=== PATIENT | female | born 1985 | race Caucasian/White ===

== ENCOUNTER 2016-12-12 23:10 | Emergency (ER) | payer MEDICAID ==
[~2016-12-12] VITALS: Ht 157.5 cm; Wt 65.8 kg
[~2016-12-12 23:10] MED LIST: CEPH-368 PO; CLIN40CR VG; DIPH25CA61 PO; DOXY100V6 PO; HYDR4TAB48 PO; IBUP-1222 PO; ONDA4TAB10 PO; OXYC-302 PO; PREN1TAB52 PO; PREN1TAB56 PO; URSO300C12 PO
[2016-12-12 23:12] VITALS: BP 120/83
== END 2016-12-13 00:35 | disposition home or self-care (01) ==
LOC: ED 23:54
DX: S60.222A Contusion of left hand, initial encounter (principal); Z90.49 Acquired absence of other specified parts of digestive tract; G43.909 Migraine, unspecified, not intractable, without status migrainosus; W23.0XXA Caught, crushed, jammed, or pinched between moving objects, initial encounter; Y93.89 Activity, other specified; Y92.009 Unspecified place in unspecified non-institutional (private) residence as the place of occurrence of the external cause; Y99.8 Other external cause status
CPT/HCPCS: 99284

== ENCOUNTER 2017-04-19 08:44 | Emergency (ER) | payer MEDICAID | END 2017-04-19 09:22 | disposition left against medical advice (07) | LOC: ED 09:15 | DX: O46.91 Antepartum hemorrhage, unspecified, first trimester (principal); Z3A.11 11 weeks gestation of pregnancy; Z53.21 Procedure and treatment not carried out due to patient leaving prior to being seen by health care provider ==

== ENCOUNTER 2017-04-28 15:37 | Emergency (ER) | payer MEDICAID ==
[~2017-04-28] VITALS: Ht 157.5 cm; Wt 67.6 kg
[2017-04-28 16:15] VITALS: BP 111/67
[2017-04-28 16:15] LABS: BASOPHILS # (AUTO) 0.07 x10^3/uL (0-0.1); BASOPHILS % (AUTO) 1 % (0-1); EOSINOPHILS # (AUTO) 0.08 x10^3/uL (0-0.4); EOSINOPHILS % (AUTO) 1 % (1-7); LYMPHOCYTES # (AUTO) 2.27 x10^3/uL (1-3.4); LYMPHOCYTES % (AUTO) 22 % (22-44); MD NO; MEAN CORPUSCULAR HGB CONC 33.5 g/dL (32.4-35.8); MEAN CORPUSCULAR VOLUME 92.4 fL (80-100); MEAN PLATELET VOLUME 8.4 fL (7.4-10.4); MONOCYTES # (AUTO) 0.84 x10^3/uL (0.2-0.8); MONOCYTES % (AUTO) 8 % (2-9); NEUTROPHILS # (AUTO) 6.86 x10^3/uL (1.8-6.8); NEUTROPHILS % (AUTO) 68 % (42-75); PLATELET COUNT 368 x10^3/uL (130-400); RED BLOOD COUNT 4.22 x10^6/uL (3.82-5.3); RED CELL DISTRIBUTION WIDTH 14.2 % (9.6-15.2)
[2017-04-28 16:26] LABS: ALBUMIN 3.8 g/dL (3.4-5.0); ANION GAP 7 mmol/L (5-15); CALCIUM 8.8 mg/dL (8.5-10.1); CHLORIDE 105 mmol/L (98-107)
[2017-04-28 17:15] LABS: CULTURE INDICATED? YES; MICROSCOPIC INDICATED
== END 2017-04-28 18:40 | disposition home or self-care (01) ==
LOC: ED 18:33
DX: O03.9 Complete or unspecified spontaneous abortion without complication (principal); O23.41 Unspecified infection of urinary tract in pregnancy, first trimester; Z3A.01 Less than 8 weeks gestation of pregnancy; Z90.49 Acquired absence of other specified parts of digestive tract
CPT/HCPCS: 36415; 76801; 80048; 81001; 82040; 84702; 85025; 86901; 87086; 99285

== ENCOUNTER 2017-06-06 20:18 | Emergency (ER) | payer MEDICAID ==
[~2017-06-06] VITALS: Ht 157.5 cm; Wt 67.1 kg
[2017-06-06 20:23] VITALS: BP 119/78
[2017-06-06] MEDS ORDERED: SODIUM CHLORIDE FLUSH 10ML SYR IVF ONE (21:00)
[2017-06-06] MEDS ORDERED: SODIUM CHLORIDE 0.9% 1,000ML IVBOLUS ONE (21:00)
[2017-06-06 21:02] LABS: BASOPHILS # (AUTO) 0.01 x10^3/uL (0-0.1); BASOPHILS % (AUTO) 0 % (0-1); EOSINOPHILS % (AUTO) 1 % (1-7); LYMPHOCYTES # (AUTO) 2.48 x10^3/uL (1-3.4); LYMPHOCYTES % (AUTO) 20 % (22-44); MD NO; MEAN CORPUSCULAR HEMOGLOBIN 30.7 pg (27.0-34.8); MEAN CORPUSCULAR HGB CONC 33.3 g/dL (32.4-35.8); MEAN CORPUSCULAR VOLUME 92.1 fL (80-100); MEAN PLATELET VOLUME 8.7 fL (7.4-10.4); MONOCYTES # (AUTO) 0.83 x10^3/uL (0.2-0.8); MONOCYTES % (AUTO) 7 % (2-9); NEUTROPHILS # (AUTO) 8.94 x10^3/uL (1.8-6.8); NEUTROPHILS % (AUTO) 72 % (42-75); PLATELET COUNT 383 x10^3/uL (130-400); RED BLOOD COUNT 4.06 x10^6/uL (3.82-5.3)
[2017-06-06 21:13] LABS: ALANINE AMINOTRANSFERASE 12 U/L (12-78); ALBUMIN 3.2 g/dL (3.4-5.0); ANION GAP 9 mmol/L (5-15); CALCIUM 8.5 mg/dL (8.5-10.1); CHLORIDE 106 mmol/L (98-107); CREATININE 0.63 mg/dL (0.55-1.02)
[2017-06-06 21:14] LABS: CULTURE INDICATED? YES; MICROSCOPIC INDICATED
[2017-06-06 21:30] LABS: ALKALINE PHOSPHATASE 61 U/L (45-117); BILIRUBIN,TOTAL 0.2 mg/dL (0.2-1.0); TOTAL PROTEIN 7.2 g/dL (6.4-8.2)
[2017-06-06] MEDS ORDERED: ACETAMINOPHEN 325 MG TABLET ONE (22:28)
[2017-06-06] MEDS ORDERED: ACETAMINOPHEN 500 MG TABLET PO ONE (22:30)
== END 2017-06-06 22:47 | disposition home or self-care (01) ==
LOC: ED 21:13
DX: O26.891 Other specified pregnancy related conditions, first trimester (principal); R10.30 Lower abdominal pain, unspecified; G43.909 Migraine, unspecified, not intractable, without status migrainosus; Z90.49 Acquired absence of other specified parts of digestive tract; Z3A.12 12 weeks gestation of pregnancy
CPT/HCPCS: 36415; 76801; 80053; 81001; 84702; 85025; 87086; 96360; 96361; 99285; J7030

== ENCOUNTER → 2017-06-11 | Outpatient (CLI) | payer MEDICAID | LOC: CFH 12:45 | PROVIDERS: ATTEND Nurse Practitioner | DX: N64.4 Mastodynia (principal); N64.52 Nipple discharge; N20.0 Calculus of kidney | CPT/HCPCS: 77065 ==

== ENCOUNTER 2017-07-17 18:23 | Emergency (ER) | payer MEDICAID ==
[~2017-07-17] VITALS: Ht 157.5 cm; Wt 68.9 kg
[2017-07-17 20:36] VITALS: BP 95/60
[2017-07-17 20:37] LABS: MICROSCOPIC AUTO
[2017-07-17 20:40] LABS: CULTURE INDICATED? YES
== END 2017-07-17 19:32 | disposition home or self-care (01) ==
LOC: ED 18:58
DX: O26.892 Other specified pregnancy related conditions, second trimester (principal); S30.0XXA Contusion of lower back and pelvis, initial encounter; R10.2 Pelvic and perineal pain; X58.XXXA Exposure to other specified factors, initial encounter; Y93.89 Activity, other specified; Y92.89 Other specified places as the place of occurrence of the external cause; Y99.2 Volunteer activity; Z3A.18 18 weeks gestation of pregnancy
CPT/HCPCS: 76815; 81001; 87086; 99285

== ENCOUNTER 2017-10-07 01:54 | Observation (INO) | payer MEDICAID ==
[2017-10-07] MEDS ORDERED: OXYcodone/APAP 10/325MG TABLET PO ONE (02:30)
[2017-10-07 02:32] LABS: MICROSCOPIC AUTO
[2017-10-07] MEDS ORDERED: OXYcodone/APAP 10/325MG TABLET ONE (02:33)
[2017-10-07] MEDS ORDERED: TERBUTALINE 1 MG/ML, 1ML ONE (04:11)
[2017-10-07] MEDS ORDERED: TERBUTALINE 1 MG/ML, 1ML SQ ONE (04:30)
[2017-10-07] MEDS: LACTATED RINGERS 1,000 ML IV SCH ×2 (04:39→05:34)
== END 2017-10-07 07:03 | disposition home or self-care (01) ==
LOC: LDOP 01:54 → LDIP 03:40
PROVIDERS: ADMIT Obstetrics & Gynecology; ATTEND Obstetrics & Gynecology
DX: O26.893 Other specified pregnancy related conditions, third trimester (principal); R10.9 Unspecified abdominal pain; Z3A.30 30 weeks gestation of pregnancy
CPT/HCPCS: 59025; 81001; 87086; 96360; 96361; 96372; G0378; J3105; J7120

== ENCOUNTER 2017-10-25 04:47 | Outpatient (CLI) | payer MEDICAID ==
[~2017-10-25] VITALS: Ht 157.5 cm; Wt 70.0 kg
[2017-10-25] MEDS ORDERED: TERBUTALINE 1 MG/ML, 1ML SQ ONE (05:00)
[2017-10-25] MEDS ORDERED: TERBUTALINE 1 MG/ML, 1ML ONE (05:01)
[2017-10-25 05:19] VITALS: BP 116/69
== END 2017-10-25 07:39 | disposition home or self-care (01) ==
LOC: LDOP 04:47
PROVIDERS: ATTEND Obstetrics & Gynecology
DX: O26.893 Other specified pregnancy related conditions, third trimester (principal); Z3A.33 33 weeks gestation of pregnancy
CPT/HCPCS: 59025; 99211; J3105; G0463

== ENCOUNTER 2018-05-24 23:24 | Emergency (ER) | payer MEDICAID ==
[~2018-05-24] VITALS: Ht 157.5 cm; Wt 65.7 kg
[~2018-05-24 23:24] MED LIST changes: +HYDR-3240 PO
[2018-05-24 23:28] VITALS: BP 129/77
--- NOTE | 2018-05-25 00:19 | NUR ---
PT TO US
[2018-05-25 00:31] LABS: CULTURE INDICATED? YES; MICROSCOPIC INDICATED
[2018-05-25 00:50] LABS: BASOPHILS % (AUTO) 1 % (0-1); EOSINOPHILS # (AUTO) 0.12 x10^3/uL (0-0.4); EOSINOPHILS % (AUTO) 1 % (1-7); LYMPHOCYTES % (AUTO) 28 % (22-44); MD NO; MEAN CORPUSCULAR HGB CONC 34.3 g/dL (32.4-35.8); MEAN CORPUSCULAR VOLUME 90.3 fL (80-100); MEAN PLATELET VOLUME 8.4 fL (7.4-10.4); MONOCYTES # (AUTO) 0.78 x10^3/uL (0.2-0.8); MONOCYTES % (AUTO) 9 % (2-9); NEUTROPHILS # (AUTO) 5.52 x10^3/uL (1.8-6.8); NEUTROPHILS % (AUTO) 61 % (42-75); PLATELET COUNT 336 x10^3/uL (130-400); RED BLOOD COUNT 3.66 x10^6/uL (3.82-5.3); RED CELL DISTRIBUTION WIDTH 15.9 % (9.6-15.2)
[2018-05-25 01:03] LABS: ALANINE AMINOTRANSFERASE 17 U/L (12-78); ALBUMIN 3.6 g/dL (3.4-5.0); ANION GAP 8 mmol/L (5-15); CALCIUM 8.7 mg/dL (8.5-10.1); CHLORIDE 109 mmol/L (98-107); CREATININE 0.49 mg/dL (0.55-1.02)
[2018-05-25 01:19] LABS: ALKALINE PHOSPHATASE 81 U/L (45-117); BILIRUBIN,TOTAL 0.2 mg/dL (0.2-1.0); TOTAL PROTEIN 6.8 g/dL (6.4-8.2)
== END 2018-05-25 01:46 | disposition home or self-care (01) ==
LOC: ED 23:39
DX: O20.0 Threatened abortion (principal)
CPT/HCPCS: 36415; 76801; 80053; 81001; 84702; 85025; 86901; 87086; 99284

== ENCOUNTER 2018-07-27 17:20 | Emergency (ER) | payer MEDICAID ==
[~2018-07-27] VITALS: Ht 157.5 cm; Wt 65.1 kg
[2018-07-27 17:53] LABS: BASOPHILS % (AUTO) 1 % (0-1); EOSINOPHILS # (AUTO) 0.07 x10^3/uL (0-0.4); EOSINOPHILS % (AUTO) 1 % (1-7); LYMPHOCYTES # (AUTO) 1.65 x10^3/uL (1-3.4); LYMPHOCYTES % (AUTO) 16 % (22-44); MD NO; MEAN CORPUSCULAR HGB CONC 34.8 g/dL (32.4-35.8); MEAN CORPUSCULAR VOLUME 91.9 fL (80-100); MEAN PLATELET VOLUME 8.7 fL (7.4-10.4); MONOCYTES # (AUTO) 0.79 x10^3/uL (0.2-0.8); MONOCYTES % (AUTO) 8 % (2-9); NEUTROPHILS # (AUTO) 7.63 x10^3/uL (1.8-6.8); NEUTROPHILS % (AUTO) 75 % (42-75); PLATELET COUNT 406 x10^3/uL (130-400); RED BLOOD COUNT 3.87 x10^6/uL (3.82-5.3); RED CELL DISTRIBUTION WIDTH 14.6 % (9.6-15.2)
[2018-07-27 18:05] LABS: ALBUMIN 3.1 g/dL (3.4-5.0); ANION GAP 8 mmol/L (5-15); CALCIUM 9.5 mg/dL (8.5-10.1); CHLORIDE 107 mmol/L (98-107)
[2018-07-27 18:21] LABS: ALANINE AMINOTRANSFERASE 11 U/L (12-78); ALKALINE PHOSPHATASE 73 U/L (45-117); BILIRUBIN,TOTAL 0.1 mg/dL (0.2-1.0); CREATININE 0.63 mg/dL (0.55-1.02)
[2018-07-27 18:34] LABS: CULTURE INDICATED? YES; MICROSCOPIC INDICATED
--- NOTE | 2018-07-27 20:22 | NUR ---
PT. TO ROOM FROM LOBBY APPROXIMATELY 20-30 MINUTES AGO; DR. WARD AT NOW TO DISCUSS FINDINGS AND POC WITH PT. SKIN PWD. NADN. RESP EVEN, NON-LABORED.
[2018-07-27 20:52] VITALS: BP 118/82
== END 2018-07-27 21:03 | disposition home or self-care (01) ==
LOC: ED 20:52
DX: O26.891 Other specified pregnancy related conditions, first trimester (principal); R10.9 Unspecified abdominal pain; G43.909 Migraine, unspecified, not intractable, without status migrainosus; Z3A.12 12 weeks gestation of pregnancy; Z98.890 Other specified postprocedural states; Z90.49 Acquired absence of other specified parts of digestive tract
CPT/HCPCS: 36415; 76770; 76815; 80053; 81001; 83690; 84702; 85025; 87086; 93005; 99284

== ENCOUNTER 2018-09-13 20:45 | Emergency (ER) | payer MEDICAID ==
[~2018-09-13] VITALS: Ht 157.5 cm; Wt 67.2 kg
[2018-09-13 20:49] VITALS: BP 114/70
--- NOTE | 2018-09-13 20:57 | NUR ---
Note undone in EDM - 09/13/18 at 205 by DIMITRI VOMITING SINCE 299. STATED WAS HAVING CONTRACTIONS THROUGHOUT DAY, INTERMITTANTLY. DENIED VAG DISCHARGE. 21 WEEKS , L AND D STATED THEY WOULD COME DOWN TO ER TO CHECK IN BABY
--- NOTE | 2018-09-13 21:09 | NUR ---
L AND D CAME DOWN TO SEE PATIENR AND CHECKED BABY
--- NOTE | 2018-09-13 21:19 | NUR ---
PT DISCHARGED AND TAKEN UP TO L AND D
== END 2018-09-13 21:22 | disposition home or self-care (01) ==
LOC: ED 21:16
DX: O21.2 Late vomiting of pregnancy (principal); Z3A.21 21 weeks gestation of pregnancy
CPT/HCPCS: 99281

== ENCOUNTER 2018-11-30 12:27 | Outpatient (CLI) | payer MEDICAID ==
[~2018-11-30] VITALS: Ht 157.5 cm; Wt 70.0 kg
== END 2018-11-30 15:15 | disposition home or self-care (01) ==
LOC: LDOP 12:27
PROVIDERS: ATTEND Obstetrics & Gynecology
DX: O26.833 Pregnancy related renal disease, third trimester (principal); O86.29 Other urinary tract infection following delivery; O26.893 Other specified pregnancy related conditions, third trimester; N13.30 Unspecified hydronephrosis; N20.0 Calculus of kidney; Z3A.33 33 weeks gestation of pregnancy
CPT/HCPCS: 59025; 76770; 81001; 87086; 99211; G0463

== ENCOUNTER 2018-11-30 16:37 | Inpatient (IN) | payer MEDICAID ==
[~2018-11-30] VITALS: Ht 157.5 cm; Wt 69.0 kg
[2018-11-30 17:02] VITALS: BP 136/80
== END 2018-12-01 13:03 | disposition home or self-care (01) | DRG 832 ==
LOC: LDOP 16:37 → LDIP 16:50
PROVIDERS: ADMIT Obstetrics & Gynecology; ATTEND Obstetrics & Gynecology
DX: O9A.213 Injury, poisoning and certain other consequences of external causes complicating pregnancy, third trimester (principal); O26.833 Pregnancy related renal disease, third trimester; O34.219 Maternal care for unspecified type scar from previous cesarean delivery; N20.0 Calculus of kidney; S16.1XXA Strain of muscle, fascia and tendon at neck level, initial encounter; Z87.442 Personal history of urinary calculi; Z90.49 Acquired absence of other specified parts of digestive tract; Z3A.33 33 weeks gestation of pregnancy; V89.2XXA Person injured in unspecified motor-vehicle accident, traffic, initial encounter; Y93.89 Activity, other specified; Y92.488 Other paved roadways as the place of occurrence of the external cause; Y99.8 Other external cause status
CPT/HCPCS: 36415; J7121; 76815; 85025; 85384; 85460; 86850; 86900; G0378; J7120

== ENCOUNTER 2018-12-01 13:13 | Emergency (ER) | payer MEDICAID ==
[~2018-12-01] VITALS: Ht 157.5 cm; Wt 69.0 kg
[2018-12-01 13:21] VITALS: BP 109/82
== END 2018-12-01 14:52 ==
LOC: ED 14:45
DX: O9A.213 Injury, poisoning and certain other consequences of external causes complicating pregnancy, third trimester (principal); S16.1XXA Strain of muscle, fascia and tendon at neck level, initial encounter; S39.012A Strain of muscle, fascia and tendon of lower back, initial encounter; R51 Headache; Z3A.33 33 weeks gestation of pregnancy; V59.49XA Driver of pick-up truck or van injured in collision with other motor vehicles in traffic accident, initial encounter; Y93.89 Activity, other specified; Y92.89 Other specified places as the place of occurrence of the external cause; Y99.8 Other external cause status
CPT/HCPCS: 72050; 99283; Q0162

== ENCOUNTER 2019-04-02 12:18 | Day surgery (SDC) | payer MEDICAID ==
[~2019-04-02] VITALS: Ht 157.5 cm; Wt 67.4 kg
[~2019-04-02 12:18] MED LIST changes: +OXYC-307 PO
[2019-04-02] MEDS ORDERED: ONDANSETRON 2MG/ML, 2ML IVPush ONE ×3 (13:00→15:00)
[2019-04-02] MEDS ORDERED: SODIUM CHLORIDE FLUSH 10ML SYR IVF ONE (13:00)
[2019-04-02] MEDS ORDERED: KETOROLAC 30 MG/1 ML IVPush ONE (13:00)
[2019-04-02] MEDS ORDERED: SODIUM CHLORIDE 0.9% 1,000ML IVBOLUS ONE (13:00)
--- NOTE | 2019-04-02 13:32 | NUR ---
HAVE ATTEMPTED IV ACCESS X 2, UNSUCCESSFUL. PT TO IMAGING AT THIS TIME. LABS ALREADY DRAWN, ULTRASOUND COMPLETE AT THIS TIME.
[2019-04-02 13:38] LABS: BASOPHILS # (AUTO) 0.02 x10^3/uL (0-0.1); BASOPHILS % (AUTO) 0 % (0-1); EOSINOPHILS # (AUTO) 0.12 x10^3/uL (0-0.4); EOSINOPHILS % (AUTO) 2 % (1-7); LYMPHOCYTES # (AUTO) 1.37 x10^3/uL (1-3.4); LYMPHOCYTES % (AUTO) 21 % (22-44); MD NO; MEAN CORPUSCULAR HEMOGLOBIN 28.4 pg (27.0-34.8); MEAN CORPUSCULAR HGB CONC 32.5 g/dL (32.4-35.8); MEAN CORPUSCULAR VOLUME 87.3 fL (80-100); MEAN PLATELET VOLUME 8.1 fL (7.4-10.4); MONOCYTES # (AUTO) 0.66 x10^3/uL (0.2-0.8); MONOCYTES % (AUTO) 10 % (2-9); NEUTROPHILS # (AUTO) 4.53 x10^3/uL (1.8-6.8); NEUTROPHILS % (AUTO) 68 % (42-75); PLATELET COUNT 349 x10^3/uL (130-400); RED BLOOD COUNT 3.93 x10^6/uL (3.82-5.3)
[2019-04-02 13:50] LABS: ALANINE AMINOTRANSFERASE 42 U/L (12-78); ALBUMIN 3.5 g/dL (3.4-5.0); ANION GAP 7 mmol/L (5-15); CALCIUM 8.4 mg/dL (8.5-10.1); CHLORIDE 109 mmol/L (98-107); CREATININE 0.72 mg/dL (0.55-1.02)
[2019-04-02] MEDS ORDERED: KETOROLAC 30 MG/1 ML ONE (13:50)
[2019-04-02] MEDS ORDERED: ONDANSETRON 2MG/ML, 2ML ONE ×3 (13:50→18:37)
[2019-04-02 13:52] LABS: ALKALINE PHOSPHATASE 81 U/L (45-117); BILIRUBIN,TOTAL 0.3 mg/dL (0.2-1.0); TOTAL PROTEIN 7.2 g/dL (6.4-8.2)
--- NOTE | 2019-04-02 13:56 | NUR ---
PT RETURNED FROM ALL IMAGING, IV LINE PLACED, PT MEDICATED PER JUN. URINE CUP AT BEDSIDE FOR SAMPLE COLLECTION, PT REQUESTING A FEW MINUTES FOR MEDICATIONS TO KICK IN BEFORE SHE GETS UP TO URINATE. CALL LIGHT IN REACH. DENIES ANY CURRENT NEEDS OR CONCERNS.
--- NOTE | 2019-04-02 14:19 | NUR ---
PT UP TO RESTROOM TO COLLECT URINE SAMPLE AT THIS TIME.
[2019-04-02] MEDS ORDERED: MORPHINE SULFATE 4 MG/ML, 1ML ONE ×2 (14:37→15:19)
[2019-04-02] MEDS: MORPHINE SULFATE 4 MG/ML, 1ML IVPush PRN ×2 (14:50→15:22)
--- NOTE | 2019-04-02 14:50 | NUR ---
PT TO CT AT THIS TIME.
--- NOTE | 2019-04-02 14:57 | NUR ---
ASSUMED CARE OF PATIENT. REPORT GIVEN FROM ORIN SY. PT IN CT
[2019-04-02 14:58] LABS: HCG UR SG 1.015 (1.003-1.030); MICROSCOPIC AUTO
[2019-04-02 15:00] LABS: CULTURE INDICATED? NO
--- NOTE | 2019-04-02 15:50 | NUR ---
PT RESTING IN ROOM. REGULAR RESP. NO ACUTE DISTRESS NOTED. WILL CONTINUE TO MONITOR.
--- NOTE | 2019-04-02 16:04 | NUR ---
PT REQUESTING MORE PAIN MEDS DR DOOLEY AWARE.
[2019-04-02] MEDS ORDERED: HYDROmorphone 1 MG/ML, 1ML VIAL ONE (16:18)
--- NOTE | 2019-04-02 16:29 | NUR ---
PT C/O 02/[address] DOOLEY AWARE. PT MEDICATED PER EMAR. VS STABLE. CALL LIGHT IN PLACE. VS STABLE. WILL CONTINUE TO MONITOR.
[2019-04-02] MEDS ORDERED: ACETAMINOPHEN 500 MG TABLET PO ONE (16:30)
[2019-04-02] MEDS ORDERED: GABAPENTIN 300 MG CAPSULE PO ONE (16:30)
[2019-04-02] MEDS ORDERED: HYDROmorphone 1 MG/ML, 1ML VIAL IV ONE (16:30)
--- NOTE | 2019-04-02 16:47 | NUR ---
DR DOOLEY HAS UPDATED PATIENT.
--- NOTE | 2019-04-02 16:59 | NUR ---
REPORT CALLED INTO THE OR
[2019-04-02 17:00] VITALS: BP 112/65
[2019-04-02] MEDS ORDERED: FENTANYL PF 250 MCG/5ML ONE (17:06)
[2019-04-02] MEDS ORDERED: hydrALAzine 20 MG/ML, 1ML IV PRN (17:30)
[2019-04-02] MEDS ORDERED: FENTANYL PF 100 MCG/2ML IV PRN (17:30)
[2019-04-02] MEDS ORDERED: LABETALOL 5MG/ML, 20ML IV PRN (17:30)
[2019-04-02] MEDS ORDERED: HYDROmorphone 2 MG/ML, 1ML IVPush PRN (17:30)
[2019-04-02] MEDS ORDERED: PROMETHAZINE 25 MG/ML, 1ML IV PRN (17:30)
[2019-04-02] MEDS ORDERED: HALOPERIDOL 5 MG/ML IV PRN (17:30)
[2019-04-02] MEDS ORDERED: MEPERIDINE/PF 25MG/ML,1ML IVPush PRN (17:30)
[2019-04-02] MEDS ORDERED: NEOSTIGMINE 1 MG/ML, 10ML ONE (18:37)
[2019-04-02] MEDS ORDERED: SUCCINYLCHOLINE 20 MG/ML, 10ML ONE (18:37)
[2019-04-02] MEDS ORDERED: ROCURONIUM 10MG/ML,5ML ONE (18:37)
[2019-04-02] MEDS ORDERED: PROPOFOL 10 MG/ML, 20ML ONE (18:37)
[2019-04-02] MEDS ORDERED: CEFAZOLIN 1,000 MG ONE (18:37)
[2019-04-02] MEDS ORDERED: DEXAMETHASONE 4 MG/ML, 1ML ONE (18:37)
[2019-04-02] MEDS ORDERED: GLYCOPYRROLATE 0.2MG/1ML, 5ML ONE (18:37)
[2019-04-02] MEDS ORDERED: OMNIPAQUE 350 MG/ML, 50 ML BOTTLE ONE (19:43)
[2019-04-02] MEDS: OXYcodone 5 MG/5 ML ORAL.SOL UDC PO PRN ×2 (21:06→21:52)
== END 2019-04-02 22:45 | disposition home or self-care (01) ==
LOC: ED 12:49 → OUT 16:21 → UNDOADMOB 16:21 → EDIP 16:21 → INTOOBSV 16:21 → 4NE 21:01 → EDIP 21:01 → UNDODISOB 22:45 → OUT 22:45
PROVIDERS: ATTEND Emergency Medicine
DX: N13.2 Hydronephrosis with renal and ureteral calculous obstruction (principal); G43.909 Migraine, unspecified, not intractable, without status migrainosus; Z90.49 Acquired absence of other specified parts of digestive tract
CPT/HCPCS: 36415; 52356; 74018; 74176; 76770; 80053; 81001; 81025; 83690; 85025; C1758; C1769; C2617; J0330; J0690; J1100; J1170; J1885; J2270; J2405; J2704; J3010; J7030; Q9967; 76000; G0378; J2710

== ENCOUNTER 2019-04-03 19:24 | Emergency (ER) | payer MEDICAID ==
[~2019-04-03] VITALS: Ht 157.5 cm; Wt 66.9 kg
[2019-04-03] MEDS ORDERED: ONDANSETRON ODT 8 MG PO STA (19:43)
[2019-04-03 20:06] LABS: MEAN CORPUSCULAR HGB CONC 32.4 g/dL (32.4-35.8); MEAN CORPUSCULAR VOLUME 89.6 fL (80-100); MEAN PLATELET VOLUME 8.1 fL (7.4-10.4); PLATELET COUNT 396 x10^3/uL (130-400); RED BLOOD COUNT 3.79 x10^6/uL (3.82-5.3); RED CELL DISTRIBUTION WIDTH 15.9 % (9.6-15.2)
[2019-04-03 20:15] LABS: ALANINE AMINOTRANSFERASE 36 U/L (12-78); ALBUMIN 3.6 g/dL (3.4-5.0); ANION GAP 6 mmol/L (5-15); CALCIUM 8.6 mg/dL (8.5-10.1); CHLORIDE 104 mmol/L (98-107)
[2019-04-03 20:17] LABS: ALKALINE PHOSPHATASE 72 U/L (45-117); BILIRUBIN,TOTAL 0.3 mg/dL (0.2-1.0); TOTAL PROTEIN 7.2 g/dL (6.4-8.2)
[2019-04-03 20:19] LABS: BASOPHILS # (AUTO) 0.02 x10^3/uL (0-0.1); BASOPHILS % (AUTO) 0 % (0-1); EOSINOPHILS # (AUTO) 0.17 x10^3/uL (0-0.4); EOSINOPHILS % (AUTO) 2 % (1-7); LYMPHOCYTES # (AUTO) 1.84 x10^3/uL (1-3.4); LYMPHOCYTES % (AUTO) 16 % (22-44); MD SCAN; MONOCYTES # (AUTO) 0.76 x10^3/uL (0.2-0.8); MONOCYTES % (AUTO) 7 % (2-9); NEUTROPHILS # (AUTO) 8.65 x10^3/uL (1.8-6.8); NEUTROPHILS % (AUTO) 76 % (42-75)
--- NOTE | 2019-04-03 20:42 | NUR ---
pt to room from lobby
[2019-04-03] MEDS ORDERED: ONDANSETRON ODT 8 MG ONE (21:34)
[2019-04-03] MEDS ORDERED: SODIUM CHLORIDE FLUSH 10ML SYR IVF ONE (22:00)
[2019-04-03] MEDS ORDERED: HYDROmorphone 1 MG/ML, 1ML VIAL ONE (22:28)
--- NOTE | 2019-04-03 22:49 | NUR ---
PT WITH IV STARTED AND MEDICATED ORDERED. PT AWARE OF NEED FOR URINE SAMPLE.
--- NOTE | 2019-04-03 23:22 | NUR ---
PT MEDICATED AGAIN FOR PAIN AND ASKING FOR WATER URINE SENT TO LAB
[2019-04-03 23:40] LABS: CULTURE INDICATED? YES; HCG UR SG 1.014 (1.003-1.030); MICROSCOPIC INDICATED
[2019-04-04] MEDS ORDERED: OXYcodone/APAP 5/325MG TABLET ONE (00:15)
[2019-04-04] MEDS ORDERED: KETOROLAC 30 MG/1 ML ONE (00:15)
[2019-04-04] MEDS: HYDROmorphone 2 MG/ML, 1ML IVPush PRN ×2 (00:23→00:24)
[2019-04-04] MEDS ORDERED: KETOROLAC 30 MG/1 ML IVPush ONE (00:30)
[2019-04-04] MEDS ORDERED: OXYcodone/APAP 5/325MG TABLET PO ONE (00:30)
--- NOTE | 2019-04-04 00:32 | NUR ---
PT MEDICATED ORDERED AND WILL RECHECK AT 0100
[2019-04-04 00:33] VITALS: BP 131/73
== END 2019-04-04 01:24 | disposition home or self-care (01) ==
LOC: ED 22:12
DX: M54.5 Low back pain (principal); M54.6 Pain in thoracic spine; Z90.49 Acquired absence of other specified parts of digestive tract
CPT/HCPCS: 36415; 80053; 81001; 81025; 83690; 85025; 87086; 96374; 96375; 99283; J1170; J1885; Q0162

== ENCOUNTER 2019-12-21 11:22 | Emergency (ER) | payer MEDICAID ==
[~2019-12-21] VITALS: Ht 157.5 cm; Wt 66.1 kg
[2019-12-21] MEDS ORDERED: ONDANSETRON ODT 8 MG PO ONE (12:00)
--- NOTE | 2019-12-21 12:35 | NUR ---
EDT AT BEDSIDE FOR EKG.
[2019-12-21] MEDS ORDERED: ONDANSETRON ODT 8 MG ONE (12:43)
[2019-12-21 12:45] VITALS: BP 142/71
--- NOTE | 2019-12-21 12:45 | NUR ---
PT PRESENTS TO ED WITH C/O DIARRHEA, HEADACHE, NAUSEA, GENERALIZED WEAKNESS AND FEVER X 3 DAYS. PT'S IS KNOWN COVID POSITIVE. PT HAS HAD OUTPATIENT COVID TEST BUT HAS NOT BEEN NOTIFIED OF RESULTS YET. PT ON ALL MONITORS, PT IS A&O, RESPS EVNE AND UNLABORED, ABLE TO SPEAK IN FULL SENTENCES WITHOUT DIFFICULTY. SPO2 MAINTAINED FROM 95-99% ON ROOM AIR. GAIT STEADY. PT IN DROPLET PLUS ISOLATION. MEDICATED WITH ZOFRAN FOR NAUSEA. CALL LIGHT IN REACH. AWAITING DC ORDERS.
--- NOTE | 2019-12-21 13:30 | NUR ---
covid swab collected and walked to lab by this RN. pt given dc instructions, educated regarding self isolation and return criteria. pt a&o, resps even and unlabored, fabianan. pt ambulatory to dc desk with steady gait, all questions answered.
== END 2019-12-21 13:30 | disposition home or self-care (01) ==
LOC: ED 12:00
DX: U07.1 COVID-19 (principal); B34.9 Viral infection, unspecified; R50.9 Fever, unspecified; R05 Cough; R07.89 Other chest pain; R06.02 Shortness of breath; R11.2 Nausea with vomiting, unspecified; R19.7 Diarrhea, unspecified; Z90.49 Acquired absence of other specified parts of digestive tract; Z90.89 Acquired absence of other organs
CPT/HCPCS: 36415; 71046; 87635; 93005; 99285; Q0162

== ENCOUNTER 2020-04-29 04:55 | Emergency (ER) | payer MEDICAID ==
[~2020-04-29] VITALS: Ht 157.5 cm; Wt 65.6 kg
--- NOTE | 2020-04-29 05:10 | NUR ---
Patient ambulated unassisted to room, placed on spo2 and auto bp cuff. Call gonzalez within reach, vsfabiana dietrich, will continue to monitor. Addendum: 04/29/20 at 0914 by [email or web address] PATIENT'S RIDE IN [place] [facility], ADVISED PT MEDICATIONS WOULD MAKE HER SLEEPY AND NOT TO DRIVE. PT ANXIOUS TO LEAVE, WALKED TO REG, STEADY GAIT.
[2020-04-29] MEDS ORDERED: ONDANSETRON 2MG/ML, 2ML ONE (05:21)
[2020-04-29] MEDS ORDERED: KETOROLAC 30 MG/1 ML ONE (05:21)
[2020-04-29 05:25] LABS: BASOPHILS % (AUTO) 1 % (0-1); EOSINOPHILS % (AUTO) 2 % (1-7); LYMPHOCYTES % (AUTO) 29 % (22-44); MEAN CORPUSCULAR HEMOGLOBIN 31.2 pg (27.0-34.8); MEAN PLATELET VOLUME 8.6 fL (7.4-10.4); MONOCYTES % (AUTO) 9 % (2-9); NEUTROPHILS % (AUTO) 60 % (42-75); PLATELET COUNT 367 x10^3/uL (130-400); RED BLOOD COUNT 4.01 x10^6/uL (3.82-5.3); RED CELL DISTRIBUTION WIDTH 14.5 % (9.6-15.2)
[2020-04-29 05:27] LABS: MD NO
[2020-04-29] MEDS ORDERED: SODIUM CHLORIDE FLUSH 10ML SYR IVF ONE (05:30)
[2020-04-29] MEDS ORDERED: ONDANSETRON 2MG/ML, 2ML IVPush ONE (05:30)
[2020-04-29] MEDS ORDERED: KETOROLAC 30 MG/1 ML IVPush ONE (05:30)
[2020-04-29 05:37] LABS: ALBUMIN 3.7 g/dL (3.4-5.0); ANION GAP 4 mmol/L (5-15); CHLORIDE 108 mmol/L (98-107)
[2020-04-29 05:41] LABS: ALANINE AMINOTRANSFERASE 18 U/L (12-78); ALKALINE PHOSPHATASE 73 U/L (45-117); BILIRUBIN,TOTAL 0.2 mg/dL (0.2-1.0); CREATININE 0.93 mg/dL (0.55-1.02); TOTAL PROTEIN 7.3 g/dL (6.4-8.2)
[2020-04-29] MEDS ORDERED: HYDROmorphone 1 MG/ML, 1ML INJ ONE ×2 (06:04→08:06)
--- NOTE | 2020-04-29 06:20 | NUR ---
PATIENT STATES PAIN WORSENING DESPITE MEDICATING
--- NOTE | 2020-04-29 06:24 | NUR ---
Patient ambulated to restroom without assistance, returned to bed without incident. Patient requesting to sit in chair as sitting on stretcher with legs up is more uncomfortable for her. Urine sample to lab, call gonzalez within reach, vss, nad, will continue to monitor.
[2020-04-29] MEDS: HYDROmorphone 2 MG/ML, 1ML IVPush PRN ×2 (06:25→08:10)
[2020-04-29 06:32] LABS: MICROSCOPIC AUTO
--- NOTE | 2020-04-29 06:59 | NUR ---
Report to Alyssa SR.
--- NOTE | 2020-04-29 06:59 | NUR ---
rECVD REPORT FROM VINCENT, ASSUMED CARE OF PATIENT. UPDATED VITALS, PATIENT COMPLAINING OF 10/10 PAIN AND NAUSEA. WILL CONTINUE TO MONITOR. CALL LIGHT WITHIN REACH, CYCLING VITALS AND CONTINUOUS SPO2
[2020-04-29] MEDS ORDERED: CEFTRIAXONE PMX 1GM/50ML 50 ML IV ONE (07:00)
--- NOTE | 2020-04-29 07:04 | NUR ---
ANY CHAVEZ AT BEDSIDE TO RE-EVALUATE PT, PT TO RECEIVE ANTIBIOTICS, PER ANY CHAVEZ, NO BLOOD CULTURES NEEDED BEFORE ADMINISTRATION
[2020-04-29] MEDS ORDERED: CEFTRIAXONE PMX 1GM/50ML 50 ML ONE (07:08)
[2020-04-29] MEDS ORDERED: PROMETHAZINE 25 MG/ML, 1ML ONE (07:12)
[2020-04-29] MEDS ORDERED: PROMETHAZINE 25 MG/ML, 1ML IM ONE (07:30)
--- NOTE | 2020-04-29 08:08 | NUR ---
PATIENT REPORTS 02/04 PAIN, ANY CHAVEZ OK'D SECOND DOSE OF DILAUDID.
--- NOTE | 2020-04-29 08:29 | NUR ---
PATIENT STATES PAIN DOWN TO 7/10
--- NOTE | 2020-04-29 08:56 | NUR ---
ATTEMPTED TO DC PATIENT, DISCHARGED IV, PATIENT THEN COMPLAINED OF ITCHING. SPOKE WITH ANY CHAVEZ, RECEIVED ORDER. ADVISED PATIENT SHE CANNOT DRIVE. SHE STATED SHE HAS A RIDE HOME.
[2020-04-29] MEDS ORDERED: DIPHENHYDRAMINE 25 MG CAPSULE ONE (08:59)
[2020-04-29] MEDS ORDERED: DIPHENHYDRAMINE 25 MG CAPSULE PO ONE (09:00)
[2020-04-29 09:01] VITALS: BP 96/64
--- NOTE | 2020-04-29 09:02 | NUR ---
Patient/Caregiver given discharge instructions and they have confirmed that they understand the instructions. Patient ambulatory with steady gait.
== END 2020-04-29 09:31 | disposition home or self-care (01) ==
LOC: ED 05:18
DX: N39.0 Urinary tract infection, site not specified (principal); G43.909 Migraine, unspecified, not intractable, without status migrainosus; Z90.49 Acquired absence of other specified parts of digestive tract; Z90.89 Acquired absence of other organs
CPT/HCPCS: 36415; 74176; 80053; 81001; 85025; 87086; 96365; 96372; 96375; 96376; 99285; J0696; J1170; J1885; J2405; J2550; Q0163

== ENCOUNTER 2020-06-04 19:33 | Emergency (ER) | payer MEDICAID ==
[~2020-06-04] VITALS: Ht 157.5 cm; Wt 65.1 kg
[~2020-06-04 19:33] MED LIST changes: +HYDR-1067 PO; -HYDR-3240 PO; -OXYC-302 PO; -OXYC-307 PO; +OXYC-380 PO; +OXYC1TAB14 PO
[2020-06-04 19:37] VITALS: BP 110/65
[2020-06-04] MEDS ORDERED: HYDROcodone/APAP 5/325 TABLET PO ONE (20:00)
[2020-06-04] MEDS ORDERED: HYDROcodone/APAP 5/325 TABLET ONE (20:10)
--- NOTE | 2020-06-04 21:16 | NUR ---
Arm sling applied, +csm post placement. Rx and DC instructions gone over with patient with understanding stated. Pt ambulatory out of ED without difficulty. Pt instructed not to drive and states she has a ride home
== END 2020-06-04 21:27 | disposition home or self-care (01) ==
LOC: ED 20:36
DX: S63.501A Unspecified sprain of right wrist, initial encounter (principal); S16.1XXA Strain of muscle, fascia and tendon at neck level, initial encounter; G43.909 Migraine, unspecified, not intractable, without status migrainosus; W18.30XA Fall on same level, unspecified, initial encounter; Y93.89 Activity, other specified; Y92.89 Other specified places as the place of occurrence of the external cause; Y99.8 Other external cause status
CPT/HCPCS: 99284

== ENCOUNTER 2020-12-27 01:55 | Emergency (ER) | payer BC, MEDICAID ==
[~2020-12-27] VITALS: Ht 154.9 cm; Wt 68.0 kg
[~2020-12-27 01:55] MED LIST changes: -HYDR-1067 PO; +HYDR-2214 PO; -OXYC-380 PO; +OXYC-501 PO; +OXYC1TAB12 PO; -OXYC1TAB14 PO
[2020-12-27 02:40] LABS: BASOPHILS % (AUTO) 1 % (0-1); EOSINOPHILS % (AUTO) 2 % (1-7); LYMPHOCYTES % (AUTO) 26 % (22-44); MEAN CORPUSCULAR HEMOGLOBIN 31.1 pg (27.0-34.8); MEAN CORPUSCULAR HGB CONC 33.9 g/dL (32.4-35.8); MEAN PLATELET VOLUME 8.2 fL (7.4-10.4); MONOCYTES % (AUTO) 8 % (2-9); NEUTROPHILS % (AUTO) 63 % (42-75); PLATELET COUNT 386 x10^3/uL (130-400); RED BLOOD COUNT 4.03 x10^6/uL (3.82-5.3); RED CELL DISTRIBUTION WIDTH 13.5 % (9.6-15.2)
--- NOTE | 2020-12-27 02:41 | NUR ---
TASK RN: PT. REPORTS VB STARTING THIS WEEK. STATES 3 + TESTS AT HOME. IN 2019 HAD TUBES REMOVED. HX OF 2 ECTOPIC IN THE PAST. LABS DRAWN, URINE SAMPLE SENT, US AT BS.
[2020-12-27 02:50] LABS: MICROSCOPIC AUTO
[2020-12-27 02:53] LABS: ALANINE AMINOTRANSFERASE 15 U/L (12-78); ALBUMIN 3.5 g/dL (3.4-5.0); ANION GAP 6 mmol/L (5-15); CALCIUM 8.6 mg/dL (8.5-10.1); CHLORIDE 108 mmol/L (98-107); CREATININE 0.62 mg/dL (0.55-1.02)
[2020-12-27 02:57] LABS: ALKALINE PHOSPHATASE 78 U/L (45-117); BILIRUBIN,TOTAL 0.2 mg/dL (0.2-1.0); TOTAL PROTEIN 7.2 g/dL (6.4-8.2)
--- NOTE | 2020-12-27 03:21 | NUR ---
TASK RN: PT. BACK FROM CT AT THIS TIME. DENIES NEEDS.
--- NOTE | 2020-12-27 03:34 | NUR ---
REPORT TO ORIN PLATT TO ASSUME CARE OF PT.
[2020-12-27] MEDS ORDERED: ONDANSETRON ODT 8 MG ONE (04:26)
--- NOTE | 2020-12-27 04:26 | NUR ---
Patient given discharge instructions and they have confirmed that they understand the instructions. Patient ambulatory with steady gait. NAD, all questions answered appropriately, denies additional needs at this time. No personal belongings left in room after discharge.
[2020-12-27 04:29] VITALS: BP 98/56
[2020-12-27] MEDS ORDERED: ONDANSETRON ODT 8 MG PO ONE (04:30)
== END 2020-12-27 04:31 | disposition home or self-care (01) ==
LOC: ED 03:06
DX: N30.01 Acute cystitis with hematuria (principal); R10.30 Lower abdominal pain, unspecified; R11.0 Nausea; G43.909 Migraine, unspecified, not intractable, without status migrainosus; Z90.49 Acquired absence of other specified parts of digestive tract
CPT/HCPCS: 36415; 74176; 76801; 80053; 81001; 84702; 85025; 86901; 87077; 87086; 87186; 99285; Q0162